=== PATIENT | female | born 1970 | race American Indian/Alaskan Native ===

== ENCOUNTER 2017-11-30 14:46 | Emergency (ER) | payer OTHER ==
[2017-11-30 15:02] VITALS: BP 138/81
[2017-11-30] MEDS ORDERED: MOTRIN PO ONE (16:03)
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
[2017-11-30] MEDS ORDERED: TYLENOL #3 PO ONE (18:03)
--- NOTE | 2017-12-04 14:17 | XRay Report ---
FINAL REPORT EXAM: XR ELBOW 3+V LT HISTORY: elbow pain TECHNIQUE: Three views left elbow PRIORS: None. FINDINGS: No fracture identified. No dislocation seen. No evidence of joint effusion. Joint spaces are within normal limits. IMPRESSION: Negative elbow series
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
== END 2017-11-30 18:22 | disposition home or self-care (01) ==
LOC: ED 14:46
DX: M54.2 Cervicalgia (principal); I10 Essential (primary) hypertension; F17.200 Nicotine dependence, unspecified, uncomplicated; V89.2XXA Person injured in unspecified motor-vehicle accident, traffic, initial encounter; Y93.89 Activity, other specified; Y92.89 Other specified places as the place of occurrence of the external cause; Y99.8 Other external cause status
CPT/HCPCS: 72040; 99283